=== PATIENT | female | born 1960 | race Caucasian/White ===

== ENCOUNTER 2017-07-06 13:24 | Emergency (ER) | payer MEDICARE, OTHER ==
[2017-07-06 14:13] VITALS: BP 134/63
--- NOTE | 2017-07-06 14:24 | UC ---
Hand/Wrist HPI - HPI Summary HPI Summary: 1. left thumb pain x 1 day jammed her left thumb to a car door. + pain and swelling of the left thumb 2. sinus pain and pressure x 7 days + pnd, nasal congestion , cough no fever, no chills - History Of Current Complaint Chief Complaint: UCRespiratory Stated Complaint: JAMMED THUMB/SINUSES Time Seen by Provider: 07/06/17 13:55 Hx Obtained From: Patient Onset/Duration: Sudden Onset, Lasting Days - 1, Still Present Severity Initially: Moderate Severity Currently: Moderate Character Of Pain: Throbbing Aggravating Factor(s): Movement, Flexion Alleviating Factor(s): Rest Associated Signs And Symptoms: Positive: Swelling, Weakness. Negative: Numbness /Tingling - Allergies/Home Medications Allergies/Adverse Reactions: Allergies Allergy/AdvReac Type Severity Reaction Status Date / Time Cyclobenzaprine Allergy Severe Airway Verified 07/06/17 14:02 [From Flexeril] Obstruction Doxycycline Allergy Severe Airway Verified 07/06/17 14:02 Obstruction Ibuprofen [From Motrin] Allergy Severe Airway Verified 07/06/17 14:02 Obstruction Ketoprofen [From Orudis] Allergy Severe Airway Verified 07/06/17 14:02 Obstruction Propoxyphene [From Darvon] Allergy Severe Airway Verified 07/06/17 14:02 Obstruction Tetracycline Allergy Severe Airway Verified 07/06/17 14:02 Obstruction Guaifenesin [From Entex ER] Allergy Airway Verified 07/06/17 14:02 Obstruction Methylparaben [From Entex ER] Allergy Airway Verified 07/06/17 14:02 Obstruction Phenylephrine [From Entex ER] Allergy Airway Verified 07/06/17 14:02 Obstruction Propylparaben [From Entex ER] Allergy Airway Verified 07/06/17 14:02 Obstruction Tramadol Allergy Tachycardia Verified 07/06/17 14:02 Home Medications: Home Medications Acetaminophen TAB* [Tylenol TAB*] 975 mg PO Q6H PRN 07/06/17 [History Confirmed 07/06/17] Albuterol HFA INHALER* [Ventolin HFA Inhaler*] 2 puff INH Q4H PRN 07/06/17 [ History Confirmed 07/06/17] Aspirin Low Dose CHEW TAB* [Aspirin Low Dose TAB*] 81 mg PO DAILY 07/06/17 [ History Confirmed 07/06/17] Multivitamins/Minerals TAB* [Thera M Plus TAB*] 1 tab PO DAILY 07/06/17 [ History Confirmed 07/06/17] Tiotropium CAP.INH* [Spiriva CAP.INH*] 1 cap.inh INH DAILY 07/06/17 [History Confirmed 07/06/17] PMH/Surg Hx/FS Hx/Imm Hx Respiratory History: COPD - Surgical History Surgical History: Yes Surgery Procedure, Year, and Place: back surgery-LAMINECTOMY (@[facility] [place])1999. APPENDECTOMY. TONSILECTOMY. Rt ANKLE - FX AND REPAIR OF TENDONS. Lt ANKLES - METZ PROCEDURE. CHOLEYCYSTECTOMY - Family History Known Family History: Positive: Hypertension - Social History Alcohol Use: None Substance Use Type: Marijuana Substance Use Comment - Amount & Last Used: several times each week for pain control Smoking Status (MU): Heavy Every Day Tobacco Smoker Type: Cigarettes Amount Used/How Often: 1 ppd Length of Time of Smoking/Using Tobacco: 40 + yrs Have You Smoked in the Last Year: Yes - Immunization History Most Recent Influenza Vaccination: 06/17/14 Review of Systems Constitutional: Negative Skin: Negative Eyes: Negative ENT: Nasal Discharge Respiratory: Cough Cardiovascular: Negative Gastrointestinal: Negative Is Patient Immunocompromised?: No All Other Systems Reviewed And Are Negative: Yes Physical Exam Triage Information Reviewed: Yes Appearance: Well-Appearing, No Pain Distress, Obese Vital Signs: Initial Vital Signs Temp 98.5 F 07/06/17 13:56 Pulse 72 07/06/17 13:56 Resp 14 07/06/17 13:56 BP 134/63 07/06/17 13:56 Pulse Ox 97 07/06/17 13:56 Vital Signs Reviewed: Yes Eyes: Positive: Conjunctiva Clear ENT: Positive: Normal ENT inspection, Hearing grossly normal, Pharynx normal, Nasal drainage, TMs normal Neck exam: Normal Neck: Positive: Supple, Nontender, No Lymphadenopathy Respiratory: Positive: Chest non-tender, Lungs clear, Normal breath sounds Cardiovascular: Positive: RRR, No Murmur, Pulses Normal Musculoskeletal: Positive: Other: - left thumb: + swelling dip, Tenderness dip, limited ROM on flexion and extension Hand/Wrist Course/Dx - Differential Dx/Diagnosis Provider Diagnoses: sprain left thumb. sinusitis Discharge - Discharge Plan Condition: Stable Disposition: HOME Prescriptions: Amoxicillin/Clavulanate TAB* [Augmentin TAB 875*] 875 mg PO BID #20 tab Patient Education Materials: Sinusitis (ED), Finger Sprain (ED) Referrals: BALDO Phoenix [Primary Care Provider] - 7 Days
--- NOTE | 2017-07-06 14:28 | RAD ---
Indication: Left thumb injury. 3 views of left thumb demonstrates soft tissue swelling at the interphalangeal joint. No fracture is noted. IMPRESSION: Soft tissue swelling at the interphalangeal joint.
== END 2017-07-06 15:05 | disposition home or self-care (01) ==
LOC: UCCORT 13:24
DX: S63.602A Unspecified sprain of left thumb, initial encounter (principal); J32.9 Chronic sinusitis, unspecified; F12.90 Cannabis use, unspecified, uncomplicated; F17.210 Nicotine dependence, cigarettes, uncomplicated; X58.XXXA Exposure to other specified factors, initial encounter; Z88.5 Allergy status to narcotic agent; Z88.1 Allergy status to other antibiotic agents; Z88.8 Allergy status to other drugs, medicaments and biological substances
CPT/HCPCS: 99213; G0463

== ENCOUNTER 2018-07-21 14:45 | Emergency (ER) | payer MEDICARE ==
[2018-07-21 15:38] VITALS: BP 131/69
--- NOTE | 2018-07-21 15:46 | UC ---
General HPI - HPI Summary HPI Summary: HEAD CONGESTION MOVED TO CHEST X 3 DAYS. COUGH, CONGESTION, SOB. HX COPD - History of Current Complaint Chief Complaint: UCGeneralIllness Stated Complaint: COUGH/CONGESTION, URINARY CONCERN Time Seen by Provider: 07/21/18 15:36 Hx Obtained From: Patient Onset/Duration: Gradual Onset Timing: Constant Pain Intensity: 2 Associated Signs & Symptoms: Positive: Cough. Negative: Fever - Allergy/Home Medications Allergies/Adverse Reactions: Allergies Allergy/AdvReac Type Severity Reaction Status Date / Time MS Cyclobenzaprine Allergy Severe Airway Verified 07/21/18 15:38 [From Flexeril] Obstruction MS Doxycycline [Doxycycline] Allergy Severe Airway Verified 07/21/18 15:38 Obstruction MS Ibuprofen [From Motrin] Allergy Severe Airway Verified 07/21/18 15:38 Obstruction MS Ketoprofen [From Orudis] Allergy Severe Airway Verified 07/21/18 15:38 Obstruction MS Propoxyphene [From Darvon] Allergy Severe Airway Verified 07/21/18 15:38 Obstruction MS Tetracycline Allergy Severe Airway Verified 07/21/18 15:38 [Tetracycline] Obstruction MS Guaifenesin Allergy Airway Verified 07/21/18 15:38 [From Entex ER] Obstruction MS Methylparaben Allergy Airway Verified 07/21/18 15:38 [From Entex ER] Obstruction MS Phenylephrine Allergy Airway Verified 07/21/18 15:38 [From Entex ER] Obstruction MS Propylparaben Allergy Airway Verified 07/21/18 15:38 [From Entex ER] Obstruction MS Tramadol [Tramadol] Allergy Tachycardia Verified 07/21/18 15:38 PMH/Surg Hx/FS Hx/Imm Hx Respiratory History: COPD - Surgical History Surgical History: Yes Surgery Procedure, Year, and Place: back surgery-LAMINECTOMY (@[facility] [place])1999. APPENDECTOMY. TONSILECTOMY. Rt ANKLE - FX AND REPAIR OF TENDONS. Lt ANKLES - METZ PROCEDURE. CHOLEYCYSTECTOMY - Family History Known Family History: Positive: Hypertension - Social History Occupation: Disabled Alcohol Use: None Substance Use Type: Marijuana Substance Use Comment - Amount & Last Used: several times each week for pain control Smoking Status (MU): Heavy Every Day Tobacco Smoker Type: Cigarettes Amount Used/How Often: 1 ppd Length of Time of Smoking/Using Tobacco: 40 + yrs Have You Smoked in the Last Year: Yes - Immunization History Most Recent Influenza Vaccination: 06/17/14 Vaccination Up to Date: Yes Review of Systems All Other Systems Reviewed And Are Negative: Yes Constitutional: Positive: Negative Skin: Positive: Negative Eyes: Positive: Negative ENT: Positive: Sinus Congestion Respiratory: Positive: Shortness Of Breath, Cough Cardiovascular: Positive: Negative Gastrointestinal: Positive: Negative Genitourinary: Positive: Negative Motor: Positive: Negative Neurovascular: Positive: Negative Musculoskeletal: Positive: Negative Neurological: Positive: Negative Psychological: Positive: Negative Is Patient Immunocompromised?: No Physical Exam Triage Information Reviewed: Yes Appearance: Well-Appearing Vital Signs: Initial Vital Signs Temp 98.2 F 07/21/18 15:35 Pulse 79 07/21/18 15:35 Resp 18 07/21/18 15:35 BP 131/69 07/21/18 15:35 Pulse Ox 97 07/21/18 15:35 Vital Signs Reviewed: Yes Eyes: Positive: Conjunctiva Clear ENT: Positive: Pharynx normal, TMs normal. Negative: Nasal drainage, Sinus tenderness Neck: Positive: Supple, Nontender, No Lymphadenopathy Respiratory: Positive: Lungs clear, No respiratory distress, Decreased breath sounds, Other: - FREQUENT CONGESTED COUGH Cardiovascular: Positive: RRR, No Murmur Abdomen Description: Positive: Nontender, No Organomegaly, Soft Bowel Sounds: Positive: Present Musculoskeletal: Positive: ROM Intact Neurological: Positive: Alert Psychological: Positive: Age Appropriate Behavior Skin Exam: Normal Course/Dx - Course Course Of Treatment: NON TOXIC, NOT HYPOXIC. - Differential Dx - Multi-Symptom Provider Diagnoses: URI, BRONCHITIS, COPD FLARE Discharge - Sign-Out/Discharge Documenting (check all that apply): Patient Departure All imaging exams completed and their final reports reviewed: No Studies - Discharge Plan Condition: Stable Disposition: HOME Prescriptions: Azithromycin TAB* [Zithromax TAB (Z-DAILY) 250 mg #6 tabs] 2 tab PO .TODAY, THEN 1 DAILY #1 daily predniSONE TAB* [Deltasone 20 MG TAB*] 40 mg PO DAILY 5 Days #10 tab Patient Education Materials: Upper Respiratory Infection (ED), Acute Bronchitis (ED), COPD (Chronic Obstructive Pulmonary Disease) (ED) Referrals: Lakshmi Rae MD [Primary Care Provider] - 5 Days Additional Instructions: INCREASE RESCUE INHALER 2 PUFFS EVERY 6 HOURS(ALBUTEROL) - Billing Disposition and Condition Condition: STABLE Disposition: Home
== END 2018-07-21 15:55 | disposition home or self-care (01) ==
LOC: UCCORT 14:45
DX: J06.9 Acute upper respiratory infection, unspecified (principal); J44.9 Chronic obstructive pulmonary disease, unspecified; Z88.1 Allergy status to other antibiotic agents; Z88.8 Allergy status to other drugs, medicaments and biological substances; Z88.6 Allergy status to analgesic agent; F17.210 Nicotine dependence, cigarettes, uncomplicated
CPT/HCPCS: 99212; G0463

== ENCOUNTER 2019-10-02 13:27 | Emergency (ER) | payer MEDICARE ==
[2019-10-02 13:47] VITALS: BP 117/71
--- NOTE | 2019-10-02 15:07 | UC ---
Respiratory Complaint HPI - HPI Summary HPI Summary: 59-year-old woman comes in with chief complaint of upper respiratory tract infection symptoms for about a week. She's had rhinorrhea cough chest congestion she has COPD and it's rate her COPD worse. Her inhalers have been helping. She's had fevers and chills. Her sputum has been cream-colored and yellow. She does feel short of breath. Does feel some splinting pain in her thoracic back with deep inspiration. - History of Current Complaint Chief Complaint: UCRespiratory Stated Complaint: short of breath Time Seen by Provider: 10/02/19 14:48 Pain Intensity: 3 - Allergies/Home Medications Allergies/Adverse Reactions: Allergies Allergy/AdvReac Type Severity Reaction Status Date / Time cyclobenzaprine Allergy Severe Airway Verified 10/02/19 13:40 [From Flexeril] Obstruction guaifenesin [From Entex [place]] Allergy Severe Airway Verified 10/02/19 13:40 Obstruction ibuprofen Allergy Severe Airway Verified 10/02/19 13:40 Obstruction propoxyphene [From Darvon] Allergy Severe Airway Verified 10/02/19 13:40 Obstruction Tetracyclines Allergy Severe Airway Verified 10/02/19 13:40 Obstruction doxycycline Allergy Hives Verified 10/02/19 13:40 ketoprofen Allergy "I stop Verified 10/02/19 13:40 breathing." phenylephrine Allergy "Trouble Verified 10/02/19 13:40 breathing" piperacillin Allergy Unknown Verified 10/02/19 13:40 Reaction Details pseudoephedrine Allergy Hives, Verified 10/02/19 13:40 Shortness of Breath tetracycline [From Tetracyn] Allergy Airway Verified 10/02/19 13:40 Obstruction tramadol AdvReac tachacardia Verified 10/02/19 13:40 Home Medications: Home Medications Cetirizine* [ZyrTEC 10 MG TAB*] 10 mg PO DAILY 10/02/19 [History Confirmed 10/02] Dm/PE/Acetaminophen/Chlorphenr [Rita-Coyle Plus Cold &] 1 cap PO Q4H PRN 10/02 [History Confirmed 10/02/19] Montelukast Sodium TAB* [Singulair TAB*] 10 mg PO DAILY 10/02/19 [History Confirmed 10/02/19] PMH/Surg Hx/FS Hx/Imm Hx Previously Healthy: Yes - Surgical History Surgical History: Yes Surgery Procedure, Year, and Place: [place] [place]. APPENDECTOMY. TONSILECTOMY. Rt ANKLE - FX AND REPAIR OF TENDONS. Lt ANKLES - METZ PROCEDURE. CHOLEYCYSTECTOMY - Family History Known Family History: Positive: Hypertension - Social History Alcohol Use: None Substance Use Type: Marijuana Substance Use Comment - Amount & Last Used: "For pain ... when I need it." Smoking Status (MU): Heavy Every Day Tobacco Smoker Type: Cigarettes Amount Used/How Often: 1 PPD Length of Time of Smoking/Using Tobacco: Since Age 12 Have You Smoked in the Last Year: Yes Household Exposure Type: Cigarettes - Immunization History Most Recent Influenza Vaccination: 06/17/14 Vaccination Up to Date: Yes Review of Systems All Other Systems Reviewed And Are Negative: Yes Constitutional: Positive: Fever, Chills, Other - see hpi Skin: Positive: Negative Eyes: Positive: Negative ENT: Positive: Nasal Discharge, Sinus Congestion Respiratory: Positive: Shortness Of Breath, Cough, Other - see hpi Cardiovascular: Positive: Negative Gastrointestinal: Positive: Negative Motor: Positive: Negative Neurovascular: Positive: Negative Musculoskeletal: Positive: Negative Neurological: Positive: Negative Psychological: Positive: Negative Is Patient Immunocompromised?: No Physical Exam Triage Information Reviewed: Yes Appearance: No Pain Distress, Well-Nourished, Ill-Appearing - mild Vital Signs: Initial Vital Signs Temp 98.5 F 10/02/19 13:36 Pulse 70 10/02/19 13:36 Resp 18 10/02/19 13:36 BP 117/71 10/02/19 13:36 Pulse Ox 96 10/02/19 13:36 Vital Signs Reviewed: Yes Eye Exam: Normal Eyes: Positive: Conjunctiva Clear ENT: Positive: Pharyngeal erythema, Nasal congestion, Nasal drainage, TMs normal Neck: Positive: Supple Respiratory: Positive: No respiratory distress, Rhonchi Cardiovascular: Positive: RRR Musculoskeletal: Positive: Strength Intact, ROM Intact, No Edema Neurological: Positive: Alert, Muscle Tone Normal Psychological: Positive: Age Appropriate Behavior Skin Exam: Normal Respiratory Course/Dx - Course Course Of Treatment: DISCUSSED VIRAL VERSES BACTERIAL INFECTIONS AND THE ROLE OF ANTIBIOTICS. THE PATIENT PREFERS TO BE ON ANTIBIOTICS AT THIS TIME. - Differential Dx/Diagnosis Provider Diagnosis: Bronchitis, COPD exacerbation Discharge ED - Sign-Out/Discharge Documenting (check all that apply): Patient Departure All imaging exams completed and their final reports reviewed: No Studies - Discharge Plan Condition: Stable Disposition: HOME Prescriptions: Erythromycin Base [Erythromycin] 500 mg PO QID #40 tablet. predniSONE 20 mg TAB [Deltasone 20 MG TAB*] 40 mg PO DAILY #10 tab Patient Education Materials: Acute Bronchitis (ED), COPD (Chronic Obstructive Pulmonary Disease) (ED) Referrals: Lakshmi Rae MD [Primary Care Provider] - Additional Instructions: FOLLOW UP WITH YOUR DOCTOR IF NOT COMPLETELY IMPROVED. GET REEVALUATED SOONER IF NOT IMPROVING OR WORSE OR ANY QUESTIONS OR CONCERNS. - Billing Disposition and Condition Condition: STABLE Disposition: Home
== END 2019-10-02 15:16 | disposition home or self-care (01) ==
LOC: UCCORT 13:27
DX: J44.1 Chronic obstructive pulmonary disease with (acute) exacerbation (principal); R50.9 Fever, unspecified; R09.81 Nasal congestion; F17.210 Nicotine dependence, cigarettes, uncomplicated; Z88.8 Allergy status to other drugs, medicaments and biological substances; Z88.6 Allergy status to analgesic agent; Z88.5 Allergy status to narcotic agent; Z88.1 Allergy status to other antibiotic agents
CPT/HCPCS: 99212; G0463